=== PATIENT | female | born 1980 | race Caucasian/White ===

== ENCOUNTER 2020-01-11 03:47 | Emergency (ER) | payer MEDICAID, OTHER ==
[2020-01-11] MEDS ORDERED: LIDOCAINE 1%-EPI 1:100,000 20 ML VIAL IJ ONE (04:00)
[2020-01-11] MEDS ORDERED: ACETAMINOPHEN EXTRA STRENGTH 500 MG TABLET ONE (04:01)
[2020-01-11] MEDS ORDERED: IBUPROFEN 600 MG TABLET ONE (04:01)
[2020-01-11] MEDS ORDERED: TETANUS/DIPHTHERIA TOXOID [ADULT] 0.5 ML VIAL IM ONE (04:02)
== END 2020-01-11 05:21 | disposition home or self-care (01) ==
LOC: EDH 03:47
DX: S01.81XA Laceration without foreign body of other part of head, initial encounter (principal); H11.32 Conjunctival hemorrhage, left eye; Y08.89XA Assault by other specified means, initial encounter; Y93.89 Activity, other specified; Y92.89 Other specified places as the place of occurrence of the external cause; Y99.8 Other external cause status
CPT/HCPCS: 12013; 90471; 90714; 99283; J3490

== ENCOUNTER 2022-08-01 04:02 | Emergency (ER) | payer OTHER ==
[~2022-08-01] VITALS: Ht 160 cm; Wt 73.0 kg
[2022-08-01 04:24] VITALS: BP 134/56
[2022-08-01] MEDS ORDERED: LIDOCAINE HCL 1% 10 ML VIAL ONE (04:40)
[2022-08-01] MEDS ORDERED: AMOX1TAB16 PO (04:50)
[2022-08-01] MEDS ORDERED: IBUP-1493 PO (04:50)
[2022-08-01] MEDS ORDERED: LIDOCAINE HCL 1% 20 ML VIAL INJ SCH (05:00)
== END 2022-08-01 05:00 | disposition home or self-care (01) ==
LOC: EDH 04:02
DX: L03.211 Cellulitis of face (principal)
CPT/HCPCS: 99284; J3490

== ENCOUNTER 2022-12-31 21:06 | Emergency (ER) | payer OTHER ==
[~2022-12-31] VITALS: Ht 162.6 cm; Wt 68.9 kg
[~2022-12-31 21:06] MED LIST: AMOX1TAB16 PO; IBUP-1493 PO
[2022-12-31 23:29] VITALS: BP 128/68
== END 2023-01-01 00:27 | disposition home or self-care (01) ==
LOC: EDH 21:06
DX: T84.59XA Infection and inflammatory reaction due to other internal joint prosthesis, initial encounter (principal); N64.4 Mastodynia; Z79.1 Long term (current) use of non-steroidal anti-inflammatories (NSAID); Z98.890 Other specified postprocedural states; Y92.89 Other specified places as the place of occurrence of the external cause
CPT/HCPCS: 99281